=== PATIENT | female | born 1985 | race Caucasian/White ===

== ENCOUNTER 2018-09-24 08:48 | Emergency (ER) | payer MEDICAID ==
[2018-09-24] MEDS ORDERED: PREN-127 PO (08:56)
--- NOTE | 2018-09-24 09:02 | ER Report ---
History and Physical Time Seen By MD: 09:03 Hx. of Stated Complaint: 18WKS - NOTICED BLEEDING WITH WIPING TODAY AT APPROX 0800 HPI/ROS CHIEF COMPLAINT: Vaginal bleeding HISTORY OF PRESENT ILLNESS: This is a 33-year-old female. She is 18 weeks with her third . Uneventful up to date. She had some bright red vaginal bleeding while at work. Small amount of spotting. She always has had some cramping during this but it seems a little bit worse. No other bleeding. She was at work, at Dr. Joiner's office, so they had her come here to the ER for further evaluation. Home Meds Reported Medications Vits W-Ca,Fe,Fa(<1MG) ( VITAMINS) 1 Each Tablet, 1 EACH PO DAILY, TAB 09/24/18 Reviewed Nurses Notes: Yes Constitutional Vital Sign - Last 24 Hours 09/24/18 09/24/18 09/24/18 09/24/18 08:51 09:00 09:30 10:00 Temp 98.6 Pulse 97 91 81 88 Resp 18 B/P (MAP) 131/85 124/87 (99) 123/84 (97) 131/90 (104) Pulse Ox 96 96 95 93 09/24/18 09/24/18 09/24/18 09/24/18 10:30 11:00 11:30 12:00 Pulse 83 87 83 88 B/P (MAP) 128/88 (101) 129/89 (102) 118/108 (111) 131/88 (102) Pulse Ox 97 93 Physical Exam General Appearance: Alert but a little anxious. Eyes: Pupils equal and round no injection. ENT: Moist mucous membranes Respiratory: Lungs clear, breathing easily. Cardiac: regular rate and rhythm Gastrointestinal: Abdomen is soft, there is some discomfort with palpating in the lower abdomen. Skin: No rashes or lesions. Pelvic exam: The vulva was normal no lesions. The vagina did have some brownish blood, small amount of seeping from the cervix of bright red but very small amount. The cervix was closed. The exam was performed with a accelerator operator. DIFFERENTIAL DIAGNOSIS: After history and physical exam differential diagnosis was considered for threatened miscarriage Medical Decision Making Data Points Result Diagram: 09/24/1890509/24/18905 Laboratory Hematology Test 09/24/18 09:06 Red Blood Count 4.71 M/uL (4.17-5.56) Mean Corpuscular Volume 86.6 fL (80.0-96.0) Mean Corpuscular Hemoglobin 30.0 pg (26.0-33.0) Mean Corpuscular Hemoglobin Concent 34.7 g/dL (32.0-36.0) Red Cell Distribution Width 12.9 % (11.5-14.5) Mean Platelet Volume 8.7 fL (7.2-11.1) Neutrophils (%) (Auto) 67.4 % (39.4-72.5) Lymphocytes (%) (Auto) 24.8 % (17.6-49.6) Monocytes (%) (Auto) 6.0 % (4.1-12.4) Eosinophils (%) (Auto) 1.5 % (0.4-6.7) Basophils (%) (Auto) 0.3 % (0.3-1.4) Nucleated RBC Relative Count (auto) 0.0 /100WBC Neutrophils # (Auto) 5.4 K/uL (2.0-7.4) Lymphocytes # (Auto) 2.0 K/uL (1.3-3.6) Monocytes # (Auto) 0.5 K/uL (0.3-1.0) Eosinophils # (Auto) 0.1 K/uL (0.0-0.5) Basophils # (Auto) 0.0 K/uL (0.0-0.1) Nucleated RBC Absolute Count (auto) 0.00 K/uL Prothrombin Time 12.4 seconds (12.0-14.4) Prothromb Time International Ratio 0.92 Activated Partial Thromboplast Time 28 seconds (23-35) Sodium Level 137 mmol/L (137-145) Potassium Level 3.5 mmol/L (3.5-5.0) Chloride Level 106 mmol/L (98-107) Carbon Dioxide Level 22 mmol/L (22-31) Blood Urea Nitrogen 10 mg/dl (7-18) Creatinine 0.50 mg/dl (0.52-1.04) Glomerular Filtration Rate Calc > 60.0 Random Glucose 105 mg/dl (75-110) Calcium Level 8.7 mg/dl (8.4-10.2) Total Bilirubin 0.3 mg/dl (0.2-1.3) Aspartate Amino Transf (AST/SGOT) 16 U/L (0-35) Alanine Aminotransferase (ALT/SGPT) 24 U/L (0-56) Alkaline Phosphatase 45 U/L (0-126) Total Protein 6.8 g/dl (6.3-8.2) Albumin 3.5 g/dl (3.5-5.0) Human Chorionic Gonadotropin, Quant 14492 mIU/ml Chemistry Test 09/24/18 09:06 White Blood Count 8.0 k/uL (4.5-11.0) Red Blood Count 4.71 M/uL (4.17-5.56) Hemoglobin 14.1 g/dL (12.0-16.0) Hematocrit 40.8 % (34.0-47.0) Mean Corpuscular Volume 86.6 fL (80.0-96.0) Mean Corpuscular Hemoglobin 30.0 pg (26.0-33.0) Mean Corpuscular Hemoglobin Concent 34.7 g/dL (32.0-36.0) Red Cell Distribution Width 12.9 % (11.5-14.5) Platelet Count 193 K/uL (150-450) Mean Platelet Volume 8.7 fL (7.2-11.1) Neutrophils (%) (Auto) 67.4 % (39.4-72.5) Lymphocytes (%) (Auto) 24.8 % (17.6-49.6) Monocytes (%) (Auto) 6.0 % (4.1-12.4) Eosinophils (%) (Auto) 1.5 % (0.4-6.7) Basophils (%) (Auto) 0.3 % (0.3-1.4) Nucleated RBC Relative Count (auto) 0.0 /100WBC Neutrophils # (Auto) 5.4 K/uL (2.0-7.4) Lymphocytes # (Auto) 2.0 K/uL (1.3-3.6) Monocytes # (Auto) 0.5 K/uL (0.3-1.0) Eosinophils # (Auto) 0.1 K/uL (0.0-0.5) Basophils # (Auto) 0.0 K/uL (0.0-0.1) Nucleated RBC Absolute Count (auto) 0.00 K/uL Prothrombin Time 12.4 seconds (12.0-14.4) Prothromb Time International Ratio 0.92 Activated Partial Thromboplast Time 28 seconds (23-35) Glomerular Filtration Rate Calc > 60.0 Calcium Level 8.7 mg/dl (8.4-10.2) Total Bilirubin 0.3 mg/dl (0.2-1.3) Aspartate Amino Transf (AST/SGOT) 16 U/L (0-35) Alanine Aminotransferase (ALT/SGPT) 24 U/L (0-56) Alkaline Phosphatase 45 U/L (0-126) Total Protein 6.8 g/dl (6.3-8.2) Albumin 3.5 g/dl (3.5-5.0) Human Chorionic Gonadotropin, Quant 17661 mIU/ml Coagulation Test 09/24/18 09:06 Prothrombin Time 12.4 seconds Prothromb Time International Ratio 0.92 Activated Partial Thromboplast Time 28 seconds EKG/Imaging Imaging OB LIMITED HISTORY: Vaginal bleeding, 18 weeks COMPARISON: None. TECHNIQUE: Transabdominal imaging was performed for assessment of the fetus and maternal pelvic structures. Transvaginal imaging was performed to evaluate the cervix FINDINGS: Intrauterine gestations: One. presentation: Variable. heart rate: 161 bpm. Amniotic fluid volume: Normal; ANNETTE 16.45 cm; MVP 5.8 cm. Placenta: Fundal and towards the left. Uterus: Gravid, otherwise grossly unremarkable where visualized. Maternal adnexa/ovaries: Grossly unremarkable, ovaries not visualized. Cervix: Grossly long and closed. There appeared to be a contraction adjacent to the cervix at the beginning the examination although was no longer identified at the end of the examination Gestational Parameters: BPD: 4.27 cm, 73rd percentile HC: 15.79 cm, 55th percentile AC: 14.1 cm, 80th percentile FL: 2.88 cm, 60th percentile Average ultrasound age (AUA): 19 weeks/ one days Estimated age based on LMP: 18 weeks/ three days Estimated weight (EFW): 276 grams +/- 40 grams Anatomic Survey: Anatomic survey not performed IMPRESSION: Single viable fetus in viable presentation with an estimated gestational age by measurements of 19 weeks and one day. The estimated weight is 276 g. The source for patient's vaginal bleeding was not identified Report Dictated By: Giovana Morris MD at 09/24/2018 11:30 AM ED Course/Re-evaluation ED Course Labs unremarkable. Ultrasound also unremarkable. Discussed the case with Dr. Joiner. See instructions below Decision to Disposition Date: Sep 24, 2018 Decision to Disposition Time: 12:09 Depart Departure Latest Vital Signs Vital Signs Date Time Temp Pulse Resp B/P (MAP) Pulse Ox O2 Delivery O2 Flow Rate FiO2 09/24/18 12:00 88 131/88 (102) 09/24/18 11:00 93 09/24/18 08:51 98.6 18 Impression: Primary Impression: Threatened in second trimester Condition: Improved Disposition: HOME OR SELF-CARE Patient Instructions: Threatened Miscarriage (ED) Additional Instructions: General rest, light to moderate activity is okay, but no heavy activity. Vaginal rest (nothing in the vagina, intercourse, tampons, etc) Follow-up with Dr. Joiner for your anatomic ultrasound as planned. Return to the ER or see Dr. Joiner for any worsening bleeding. Slight spotting diminishing in amount today would be considered normal. CANELO COSBY MD Sep 24, 2018 09:02
[2018-09-24] MEDS ORDERED: NS(*) 0.9% 1000 ML BAG 1,000 ML IV ONE (09:09)
[2018-09-24 09:22] LABS: PLATELET COUNT, AUTOMATED 193 K/uL (150-450)
[2018-09-24 09:27] LABS: INR 0.92
--- NOTE | 2018-09-24 11:45 | RADIOLOGY IMAGING REPORT ---
FACILITY: [facility] PATIENT NAME: Alondra Chao : 1985 MR: [id number] V: [id number] EXAM DATE: ORDERING PHYSICIAN: CANELO COSBY TECHNOLOGIST: Location: [facility] Patient: Alondra Chao : 1985 Visit/Account:[id number] Date of Sevice: 09/24/2018 OB LIMITED HISTORY: Vaginal bleeding, 18 weeks COMPARISON: None. TECHNIQUE: Transabdominal imaging was performed for assessment of the fetus and maternal pelvic s tructures. Transvaginal imaging was performed to evaluate the cervix FINDINGS: Intrauterine gestations: One. presentation: Variable. heart rate: 161 bpm. Amniotic fluid volume: Normal; ANNETTE 16.45 cm; MVP 5.8 cm. Placenta: Fundal and towards the left. Uterus: Gravid, otherwise grossly unremarkable where visualized. Maternal adnexa/ovaries: Grossly unremarkable, ovaries not visualized. Cervix: Grossly long and closed. There appeared to be a contraction adjacent to the cervix at the beginning the examination although w as no longer identified at the end of the examination Gestational Parameters: BPD: 4.27 cm, 73rd percentile HC: 15.79 cm, 55th percentile AC: 14.1 cm, 80th percentile FL: 2.88 cm, 60th percentile Average ultrasound age (AUA): 19 weeks/ one days Estimated age based on LMP: 18 weeks/ three days Estimated weight (EFW): 276 grams +/- 40 grams Anatomic Survey: Anatomic survey not performed IMPRESSION: Single viable fetus in viable presentation with an estimated gestational age by measurements of 19 we eks and one day. The estimated weight is 276 g. The source for patient's vaginal bleeding was not identified Report Dictated By: Giovana Morris MD at 09/24/2018 11:30 AM Report E-Signed By: Giovana Morris MD at 09/24/2018 11:39 AM WSN:[email or web address]
[2018-09-24 12:00] VITALS: BP 131/88
== END 2018-09-24 12:22 | disposition home or self-care (01) ==
LOC: ER 08:55
DX: O20.0 Threatened abortion (principal); Z3A.19 19 weeks gestation of pregnancy
CPT/HCPCS: 76815; 84702; 85025; 85610; 85730; 86900; 86901; 96360; 96361; 99284; J7030; 82040; 82247; 82310; 82374; 82435; 82565; 82947; 84075; 84132; 84155; 84295; 84450; 84460; 84520

== ENCOUNTER 2018-09-27 12:37 | Emergency (ER) | payer OTHER, MEDICAID ==
[~2018-09-27 12:37] MED LIST: PREN-127 PO
--- NOTE | 2018-09-27 12:40 | ER Report ---
History and Physical Time Seen By MD: 12:41 HPI/ROS 33-year-old at 19 weeks gestation comes to the emergency department feeling cramping pain in her pelvis similar to contractions. She denies dysuria or hematuria. No trauma. No fever chills. She had an US 2 days ago which showed an IUP. No vaginal bleeding. Allergies: Coded Allergies: adhesive (Verified Allergy, Unknown, 09/27/18) dERMABOND amitriptyline (Verified Allergy, Unknown, 09/27/18) oxcarbazepine (Verified Allergy, Unknown, 09/27/18) Home Meds Reported Medications Ondansetron Hcl (ZOFRAN) 4 Mg Tablet, 4 MG PO Q6H PRN for NAUSEA, TAB 09/27/18 Vits W-Ca,Fe,Fa(<1MG) ( VITAMINS) 1 Each Tablet, 1 EACH PO DAILY, TAB 09/24/18 Reviewed Nurses Notes: Yes Old Medical Records Reviewed: Yes Hx Smoking: No Exposure to Second Hand Smoke?: No Hx Substance Use Disorder: No Hx Alcohol Use: No Constitutional Vital Sign - Last 24 Hours 09/27/18 09/27/18 09/27/18 09/27/18 12:50 12:52 12:53 13:00 Temp 97.4 Pulse 98 85 Resp 16 B/P (MAP) 113/73 (86) 113/73 ???/??? (8215) Pulse Ox 96 96 O2 Delivery Room Air 09/27/18 09/27/18 09/27/18 09/27/18 13:04 13:07 13:22 13:30 Pulse 95 96 B/P (MAP) 109/75 (86) 114/78 (90) Pulse Ox 95 94 09/27/18 09/27/18 09/27/18 09/27/18 13:37 13:52 14:00 14:30 Pulse 93 92 B/P (MAP) 108/79 (89) 115/79 (91) Pulse Ox 94 94 Physical Exam General Appearance: The patient is alert, has no immediate need for airway protection and no current signs of toxicity. Eyes: Pupils equal and round no injection. Respiratory: Chest is non tender, lungs are clear to auscultation. Cardiac: regular rate and rhythm Gastrointestinal: Abdomen is soft and non tender, no masses, bowel sounds normal. Skin: No rashes or lesions. Medical Decision Making Data Points Laboratory Hematology Test 09/27/18 13:04 Urine Color Yellow Urine Clarity Clear Urine pH 7.0 pH (4.8-9.5) Urine Specific [place] 1.012 Urine Protein Negative mg/dL (NEGATIVE) Urine Glucose (UA) Negative mg/dL (NEGATIVE) Urine Ketones Negative mg/dL (NEGATIVE) Urine Blood Negative (NEGATIVE) Urine Nitrite Negative (NEGATIVE) Urine Bilirubin Negative (NEGATIVE) Urine Urobilinogen Negative mg/dL (0.2-1.9) Urine Leukocyte Esterase Small (NEGATIVE) Urine RBC None /HPF (0-2/HPF) Urine WBC 1 /HPF (0-5/HPF) Urine Squamous Epithelial Cells Many /LPF (</=FEW) Urine Bacteria Few /HPF (NONE-FEW) Urine Mucus Few /HPF (NONE-FEW) Chemistry Test 09/27/18 13:04 Urine Color Yellow Urine Clarity Clear Urine pH 7.0 pH (4.8-9.5) Urine Specific [place] 1.012 Urine Protein Negative mg/dL (NEGATIVE) Urine Glucose (UA) Negative mg/dL (NEGATIVE) Urine Ketones Negative mg/dL (NEGATIVE) Urine Blood Negative (NEGATIVE) Urine Nitrite Negative (NEGATIVE) Urine Bilirubin Negative (NEGATIVE) Urine Urobilinogen Negative mg/dL (0.2-1.9) Urine Leukocyte Esterase Small (NEGATIVE) Urine RBC None /HPF (0-2/HPF) Urine WBC 1 /HPF (0-5/HPF) Urine Squamous Epithelial Cells Many /LPF (</=FEW) Urine Bacteria Few /HPF (NONE-FEW) Urine Mucus Few /HPF (NONE-FEW) Urinalysis Test 09/27/18 13:04 Urine Color Yellow Urine Clarity Clear Urine pH 7.0 pH (4.8-9.5) Urine Specific [place] 1.012 Urine Protein Negative mg/dL (NEGATIVE) Urine Glucose (UA) Negative mg/dL (NEGATIVE) Urine Ketones Negative mg/dL (NEGATIVE) Urine Blood Negative (NEGATIVE) Urine Nitrite Negative (NEGATIVE) Urine Bilirubin Negative (NEGATIVE) Urine Urobilinogen Negative mg/dL (0.2-1.9) Urine Leukocyte Esterase Small (NEGATIVE) Urine RBC None /HPF (0-2/HPF) Urine WBC 1 /HPF (0-5/HPF) Urine Squamous Epithelial Cells Many /LPF (</=FEW) Urine Bacteria Few /HPF (NONE-FEW) Urine Mucus Few /HPF (NONE-FEW) ED Course/Re-evaluation ED Course CT transvaginal ultrasound which showed a normal closed cervix for her gestation. No vaginal bleeding. UA is not a clean catch, but no indication of a UTI. Culture was sent. No abdominal pain or tenderness to palpation. Normal vitals. I spoke with Dr. Logan about this patient. She would like the patient to follow up with Dr. Joiner this week. Decision to Disposition Date: Sep 27, 2018 Decision to Disposition Time: 16:00 Depart Departure Latest Vital Signs Vital Signs Date Time Temp Pulse Resp B/P (MAP) Pulse Ox O2 Delivery O2 Flow Rate FiO2 09/27/18 14:30 115/79 (91) 09/27/18 13:52 92 94 09/27/18 12:53 97.4 16 Room Air Impression: Primary Impression: Cramping affecting , antepartum Condition: Improved Disposition: HOME OR SELF-CARE Referrals: KATHRIN JOINER MD (PCP) Additional Instructions: Keep drinking plenty of fluids. Follow up this week with Dr. Joiner. KIMBERLY BRUNO MD Sep 27, 2018 12:40
[2018-09-27] MEDS ORDERED: ONDA4TAB97 PO (12:52)
[2018-09-27 14:30] VITALS: BP 115/79
--- NOTE | 2018-09-27 14:51 | RADIOLOGY IMAGING REPORT ---
FACILITY: [facility] PATIENT NAME: Alondra Chao : 1985 MR: [id number] V: [id number] EXAM DATE: ORDERING PHYSICIAN: KIMBERLY BRUNO TECHNOLOGIST: Location: Patient: Alondra Chao : 1985 Visit/Account:[id number] Date of Sevice: 09/27/2018 EXAMINATION: Limited Transabdominal OB Ultrasound >14 wks Without Full Anatomic Survey 09/27/2018 1:16 PM HISTORY: Contractions. EGA by LMP 18 weeks 6 days. COMPARISON: 09/24/2018 FINDINGS: Assessment of only the cervix and the heart rate was requested. There is a single viable IUP. F etal heart rate 161-165 BPM. Placenta is posterior. No gross sonographic findings of abruption demons trated. Cervix is closed measuring 4.9 cm there is echogenic tissue along the edge of the internal os suggesting at least marginal previa IMPRESSION: 1. Single viable IUP. Dating measurements and anatomic survey were not requested or performed. 2. Closed 4.9 cm cervix. There appears to be at least marginal placenta previa which should be follow ed later in . Of note this was not evident on the prior and this is possibly artifact or fet al tissue. 3. heart rate 161/165 BPM. Report Dictated By: Gt Oakes MD at 09/27/2018 2:40 PM Report E-Signed By: Gt Oaeks MD at 09/27/2018 2:47 PM WSN:[id number]
== END 2018-09-27 15:30 | disposition home or self-care (01) ==
LOC: ER 12:58
DX: O26.892 Other specified pregnancy related conditions, second trimester (principal); Z3A.19 19 weeks gestation of pregnancy
CPT/HCPCS: 76817; 81001; 87088; 99284

== ENCOUNTER → 2018-11-07 | Outpatient (REF) | payer OTHER, MEDICAID ==
[~2018-11-07] MED LIST changes: +ONDA4TAB97 PO
== END ==
LOC: ZZSENDIN 17:29
PROVIDERS: ATTEND Physician Assistant
DX: O26.892 Other specified pregnancy related conditions, second trimester (principal); R25.2 Cramp and spasm; Z3A.24 24 weeks gestation of pregnancy
CPT/HCPCS: 82040; 82247; 82310; 82374; 82435; 82565; 82947; 84075; 84132; 84155; 84295; 84450; 84460; 84520

== ENCOUNTER → 2018-11-24 | Outpatient (REF) | payer OTHER, MEDICAID | LOC: ZZSENDIN 10:26 | PROVIDERS: ATTEND Obstetrics & Gynecology | DX: O60.00 Preterm labor without delivery, unspecified trimester (principal) | CPT/HCPCS: 82731 ==

== ENCOUNTER → 2019-01-02 | Outpatient (REF) | payer OTHER ==
[2019-01-02 10:41] LABS: PLATELET COUNT, AUTOMATED 179 K/uL (150-450)
== END ==
LOC: ZZSENDIN 10:27
PROVIDERS: ATTEND Physician Assistant
DX: O12.10 Gestational proteinuria, unspecified trimester (principal); R60.9 Edema, unspecified; Z3A.32 32 weeks gestation of pregnancy
CPT/HCPCS: 82040; 82247; 82310; 82374; 82435; 82565; 82570; 82947; 83615; 84075; 84132; 84155; 84156; 84295; 84450; 84460; 84520; 84550; 85025

== ENCOUNTER 2019-01-15 21:50 | Observation (INO) | payer OTHER ==
[~2019-01-15] VITALS: Ht 160 cm; Wt 76.2 kg
[2019-01-15] MEDS ORDERED: LR(*) 1000 ML BAG 1,000 ML ONE (22:27)
[2019-01-15] MEDS ORDERED: PENICILLIN G 5 MILLUN/100 ML 100 ML ONE (22:27)
[2019-01-15] MEDS ORDERED: BETAMETHASONE/ACETATE 6 MG/1ML ONE ×2 (22:28→22:36)
[2019-01-15] MEDS ORDERED: PENICILLIN G 5 MILLUN/100 ML 100 ML IVPB ONE (22:40)
[2019-01-15] MEDS ORDERED: ACETAMINOPHEN 325 MG TAB ONE (23:11)
[2019-01-15 23:23] VITALS: BP 142/92; Ht 160 cm; Wt 76.2 kg
[2019-01-15] MEDS ORDERED: ONDANSETRON 4 MG/2 ML VIAL IVP ONE (23:45)
[2019-01-15] MEDS ORDERED: ONDANSETRON 4 MG/2 ML VIAL ONE (23:45)
--- NOTE | 2019-01-15 23:48 | History & Physical ---
History of Present Illness Age of Patient: 33 : 3 Para or TPAL: 2001 EDC per LMP: February 26, 2019 EDC per U/S: Feb 22, 2019 Estimated Gestational Age: 34.4 Chief Complaint Rupture of Membranes History of Present Illness 33 yo @ 34w4d c/w 9w0d sono with c/o rupture of membranes. She states at around 2100 hrs she felt a gush of fluid. She also reports she had had intercourse approximately 4 hours prior to rupture. Her obstetrical course has remained unremarkable per report. She denies CP, SOB, F/C, N/V, RUQ pain, vaginal bleeding or discharge. She reports a TAM at this time. All previous deliveries have been vaginal deliveries. History Patient's Blood Type: A Positive Rubella Status: Immune Group B Strep Screen: Unknown Miscellaneous Screens/Cultures: Antibody screen negative, RPR neg, HBsAg neg, HIV neg, GC/CT neg Obstetrical History: 1) June 2005, 40 weeks, 26 hr labor, 7lbs 8 oz boy, vaginal delivery, Epidural 2) October 2007, 40 wks, 1 hr labor, 6 lb 13 oz girl, vaginal delivery Past Medical History: Depression Diagnostic Laparoscopy Colposcopy Allergies: Coded Allergies: adhesive (Verified Allergy, Unknown, 09/27/18) dERMABOND amitriptyline (Verified Allergy, Unknown, 09/27/18) oxcarbazepine (Verified Allergy, Unknown, 09/27/18) Social History: Feels safe at home, denies alcohol, tobacco, illicit drugs Med Rec Home Meds Reported Medications Ondansetron Hcl (ZOFRAN) 4 Mg Tablet, 4 MG PO Q6H PRN for NAUSEA, TAB 09/27/18 Vits W-Ca,Fe,Fa(<1MG) ( VITAMINS) 1 Each Tablet, 1 EACH PO DAILY, TAB 09/24/18 Review of Systems All Systems Reviewed/Normal: Yes, Except as Noted Constitutional: No Fever, No Weight Loss, No Weight Gain, No Chills, No Night Sweats, No Other Neurological: No Syncope, No Confusion, No Weakness, No Dizziness, No Slurred Speech, No Other Eyes: No Vision Change, No Loss of Vision, No Photophobia, No Other ENT: No Hearing Loss, No Sinus Congestion, No Sore Throat, No Ear Ache, No Tinnitus, No Other Cardiovascular: No Chest Pain, No Palpitations, No Orthostatic Hypotension, No Other Respiratory: No Shortness of Breath, No Cough, No Wheezing, No Other Gastrointestinal: No Nausea, No Vomiting, No Diarrhea, No Dysphagia, No Constipation, No Early Satiety, No Hematemesis, No Hematochezia, No Melena, No Abdominal Pain, No Other Genitourinary: No Dysuria, No Hematuria, No Urinary Incontinence, No Other Musculoskeletal: No Pain, No Sprain, No Strain, No Impaired Mobility, No Other Psychiatric: No Depression, No Anxiety, No Other Exam General Exam General Apperance: Alert/Awake/No Acute Distress, Afebrile Neuro: No Gross deficits, Headache Eyes: Normal Extraocular Movement & Vison Respiratory: No Respiratory Distress Musculoskeletal: No Weakness/Pain Extremities: No Cyanosis,Clubbing or Edema Psychological: Alert & Oriented X3, Appropriate Mood & Affect Vaginal Discharge/Fluid?: Clear Fluid Cervical Dialation: 2 Cervical Effacement (%): 50 Cervical Consistency: Moderate Cervical Position: Posterior Station: -2 Presentation: Vertex Uterine Contractions(Q min): 2 (q 2-4) Uterine Contraction Strength: Mild UC Resting Tone: Soft Fetus Feeling Movement?: Yes Heart Tones: 140 Heart Tone Variabilty: Moderate FHT Accelerations: 15X15 FHT Decelerations: None FHT Category: I Medical Decision Making Data Points Laboratory Tests Test 01/15/19 22:01 01/15/19 22:42 Membranes Rupture (PAMG-1) Positive Urine Color Yellow Urine Clarity Cloudy Urine pH 6.0 pH Urine Specific [place] 1.016 Urine Protein 100 mg/dL Urine Glucose (UA) 50 mg/dL Urine Ketones 20 mg/dL Urine Blood Moderate Urine Nitrite Negative Urine Bilirubin Negative Urine Urobilinogen Negative mg/dL Urine Leukocyte Esterase Moderate Urine RBC 27 /HPF Urine WBC 108 /HPF Urine WBC Clumps Mod /HPF Urine Squamous Epithelial Cells Many /LPF Urine Bacteria Few /HPF Urine Mucus Few /HPF Urine Random Creatinine Pending Urine Random Total Protein Pending Current Medications Medications (Trade) Dose Ordered Sig/Tiana Route PRN Reason Start Time Stop Time Status Last Admin Dose Admin Penicillin G Potassium 100 ml @ As Directed STK-MED ONCE .ROUTE 01/15/19 22:27 01/15/19 22:29 DC Lactated Ringer's 1,000 ml @ As Directed STK-MED ONCE .ROUTE 01/15/19 22:27 01/15/19 22:32 DC Betamethasone Acet/Betameth SodPhos (Celestone-Soluspan Susp(*)6 Mg/1ml (Or Equiv)) 6 mg STK-MED ONCE .ROUTE 01/15/19 22:28 01/15/19 22:32 DC Betamethasone Acet/Betameth SodPhos (Celestone-Soluspan Susp(*)6 Mg/1ml (Or Equiv)) 6 mg STK-MED ONCE .ROUTE 01/15/19 22:36 01/15/19 22:38 DC Betamethasone Acet/Betameth SodPhos (Celestone-Soluspan Susp(*)6 Mg/1ml (Or Equiv)) 12 mg Q24H IM 01/16/19 09:00 01/18/19 08:59 Penicillin G Potassium 100 ml @ 100 mls/hr ONCE ONCE IVPB 01/15/19 22:40 01/15/19 23:39 VTE Prophylasis: Adult Deep Vein Thrombosis/Pulmonary: No Pharmacological Contraindicati: Pt at Low Risk for VTE Mechanical Contraindications: Pt at Low Risk for VTE Assessment and Plan Hospital Day: 0 TILE SORTER Assessment: Stable (33 yo at 34w4d with PPROM. s/p Betamethasone 12.5mg. S/P PCN G 5 Million units IV loading dose.) TILE SORTER Plan: Discharge Home Today (Will transfer patient to [facility] for further care due to gestational age of baby. Accepting physician to be Dr. Randa Zavala. She will be flown to [facility]. LND phone number at [facility] [phone].) JAME BELLO MD Jan 15, 2019 23:48
[2019-01-15 23:54] LABS: PLATELET COUNT, AUTOMATED 170 K/uL (150-450)
--- NOTE | 2019-01-16 00:10 | OB/GYN Discharge Summary ---
Discharge Summary Reason for Hosp/Final Diag: (1) premature rupture of membranes (PPROM) with onset of labor after 24 hours of rupture in third trimester, antepartum Onset Date: ~ 01/15/2019 Status: Acute Hospital Course & Plan: Patient was admitted to the hospital with c/o rupture of membranes. Rupture of membranes were confirmed. She was started on betamethasone for lung maturity, and penicillin G for GBS prophylaxis, GBS Unknown. Due to the patient's gestational age of 34w4d, transfer was arranged to [facility] as the pediatricians at [facility] can only care for newborns greater than 35wks. [facility]ates Vital Signs Laboratory Tests Test 01/15/19 22:01 01/15/19 22:42 01/15/19 23:35 Membranes Rupture (PAMG-1) Positive Urine Color Yellow Urine Clarity Cloudy Urine pH 6.0 pH Urine Specific [place] 1.016 Urine Protein 100 mg/dL Urine Glucose (UA) 50 mg/dL Urine Ketones 20 mg/dL Urine Blood Moderate Urine Nitrite Negative Urine Bilirubin Negative Urine Urobilinogen Negative mg/dL Urine Leukocyte Esterase Moderate Urine RBC 27 /HPF Urine WBC 108 /HPF Urine WBC Clumps Mod /HPF Urine Squamous Epithelial Cells Many /LPF Urine Bacteria Few /HPF Urine Mucus Few /HPF Urine Random Creatinine 132.2 mg/dl Urine Random Total Protein 126 mg/dl White Blood Count 7.7 k/uL Red Blood Count 4.15 M/uL Hemoglobin 11.9 g/dL Hematocrit 35.1 % Mean Corpuscular Volume 84.4 fL Mean Corpuscular Hemoglobin 28.7 pg Mean Corpuscular Hemoglobin Concent 34.0 g/dL Red Cell Distribution Width 12.4 % Platelet Count 170 K/uL Mean Platelet Volume 11.1 fL Neutrophils (%) (Auto) 65.0 % Lymphocytes (%) (Auto) 27.4 % Monocytes (%) (Auto) 5.7 % Eosinophils (%) (Auto) 1.2 % Basophils (%) (Auto) 0.7 % Nucleated RBC Relative Count (auto) 0.1 /100WBC Neutrophils # (Auto) 5.0 K/uL Lymphocytes # (Auto) 2.1 K/uL Monocytes # (Auto) 0.4 K/uL Eosinophils # (Auto) 0.1 K/uL Basophils # (Auto) 0.1 K/uL Nucleated RBC Absolute Count (auto) 0.00 K/uL Sodium Level 136 mmol/L Potassium Level 3.7 mmol/L Chloride Level 109 mmol/L Carbon Dioxide Level 19 mmol/L Blood Urea Nitrogen 8 mg/dl Creatinine 0.50 mg/dl Glomerular Filtration Rate Calc > 60.0 Random Glucose 88 mg/dl Calcium Level 8.5 mg/dl Total Bilirubin 0.2 mg/dl Aspartate Amino Transf (AST/SGOT) 14 U/L Alanine Aminotransferase (ALT/SGPT) 17 U/L Alkaline Phosphatase 134 U/L Total Protein 5.8 g/dl Albumin 3.1 g/dl Current Medications Medications (Trade) Dose Ordered Sig/Tiana Route PRN Reason Start Time Stop Time Status Last Admin Dose Admin Penicillin G Potassium 100 ml @ As Directed STK-MED ONCE .ROUTE 01/15/19 22:27 01/15/19 22:29 DC Lactated Ringer's 1,000 ml @ As Directed STK-MED ONCE .ROUTE 01/15/19 22:27 01/15/19 22:32 DC Betamethasone Acet/Betameth SodPhos (Celestone-Soluspan Susp(*)6 Mg/1ml (Or Equiv)) 6 mg STK-MED ONCE .ROUTE 01/15/19 22:28 01/15/19 22:32 DC Betamethasone Acet/Betameth SodPhos (Celestone-Soluspan Susp(*)6 Mg/1ml (Or Equiv)) 6 mg STK-MED ONCE .ROUTE 01/15/19 22:36 01/15/19 22:38 DC Betamethasone Acet/Betameth SodPhos (Celestone-Soluspan Susp(*)6 Mg/1ml (Or Equiv)) 12 mg Q24H IM 01/16/19 09:00 01/18/19 08:59 Penicillin G Potassium 100 ml @ 100 mls/hr ONCE ONCE IVPB 01/15/19 22:40 01/15/19 23:39 Weight (Pounds): 168 Condition: No Change Discharge: Another Hospital (Transfer to [facility] for higher care.) Home Meds Reported Medications Vits W-Ca,Fe,Fa(<1MG) ( VITAMINS) 1 Each Tablet, 1 EACH PO DAILY, TAB 09/24/18 Discontinued Reported Medications Ondansetron Hcl (ZOFRAN) 4 Mg Tablet, 4 MG PO Q6H PRN for NAUSEA, TAB 09/27/18 Follow up with: Dr. Joiner [phone] Follow up in: 6 wks PP or PO (May follow up sooner as needed. ), 5-7 days Discharge Activity: Bed Rest JAME BELLO MD Jan 16, 2019 00:10
[2019-01-16] MEDS ORDERED: ACETAMINOPHEN 325 MG TAB PO ONE (02:20)
[2019-01-16] MEDS ORDERED: LR(*) 1000 ML BAG 1,000 ML IV PRN (02:46)
[2019-01-16] MEDS ORDERED: BETAMETHASONE/ACETATE 6 MG/1ML IM SCH (09:00)
== END 2019-01-16 01:00 | disposition short-term general hospital (02) ==
LOC: OB 21:50
PROVIDERS: ADMIT Obstetrics & Gynecology; ATTEND Obstetrics & Gynecology
DX: O42.113 Preterm premature rupture of membranes, onset of labor more than 24 hours following rupture, third trimester (principal); Z3A.34 34 weeks gestation of pregnancy
CPT/HCPCS: 36415; 59025; 81001; 82570; 84112; 84156; 85025; 86850; 86900; 86901; G0378; G0379; J0702; J2405; J2540; J7120; 82040; 82247; 82310; 82374; 82435; 82565; 82947; 84075; 84132; 84155; 84295; 84450; 84460; 84520

== ENCOUNTER → 2019-01-16 | Outpatient (CLI) | payer OTHER ==
[2019-01-15 23:23] VITALS: BMI 29.8
== END ==
LOC: AMB 00:18
PROVIDERS: ATTEND Nurse Practitioner
DX: R10.9 Unspecified abdominal pain (principal); Z34.90 Encounter for supervision of normal pregnancy, unspecified, unspecified trimester